=== PATIENT | female | born 1990 | race Hispanic/Latino ===

== ENCOUNTER 2020-06-18 19:20 | Inpatient (IN) | payer MEDICAID, OTHER ==
[2020-06-18 20:19] VITALS: BMI 47.8
[2020-06-18] MEDS ORDERED: HYDROcodone/Acetaminophen 5/325 mg Tablet PO PRN (20:38)
[2020-06-18] MEDS ORDERED: Misoprostol 200 MCG TAB PR PRN (20:38)
[2020-06-18] MEDS ORDERED: Promethazine HCl 25 MG/ML VIAL IM PRN (20:38)
[2020-06-18] MEDS ORDERED: Carboprost 250 MCG/ML AMP IM PRN (20:38)
[2020-06-18] MEDS ORDERED: Ibuprofen 800 MG TAB PO PRN (20:38)
[2020-06-18] MEDS ORDERED: hydrALAZINE 20 MG/ML VIAL SLOW IVP PRN (20:38)
[2020-06-18] MEDS ORDERED: Diphenoxylate HCl/Atropine Tablet PO PRN (20:38)
[2020-06-18] MEDS ORDERED: Lidocaine 1% (PF) 30 ML VIAL SC PRN (20:38)
[2020-06-18] MEDS ORDERED: Ondansetron PF 4 MG/2 ML Vial IVP PRN (20:38)
[2020-06-18] MEDS ORDERED: Methylergonovine 0.2 MG/ML VIAL IM PRN (20:38)
[2020-06-18] MEDS ORDERED: Penicillin G Potassium 5 MILL.UNITS in Sodium Chloride 0.9% 100 ML IVPB SCH (20:45)
[2020-06-18] MEDS ORDERED: NS w/ Oxytocin 30 units 500 ML IV PRN (20:46)
[2020-06-18] MEDS: Lactated Ringer's 1,000 ML IV SCH (20:50)
[2020-06-18] MEDS: Penicillin G 2.5 MILL.units 2.5 MILL.UNITS in Premix Bag 1 BAG IVPB SCH (21:08)
[2020-06-18 21:48] LABS: Hemoglobin 10.6 g/dL (12.0-15.5); Mean Corpuscular HGB CONC 32.1 g/dL (32.0-36.0); Mean Corpuscular Hemoglobin 26.4 pg (27.0-33.0); Mean Corpuscular Volume 82.3 fl (81.6-98.3); Mean Platelet Volume 10.6 fl (7.4-10.4); Platelet Count 307 10x3/uL (150-450); RBC Distribution Width 13.4 % (11.5-14.5); Red Blood Cell (RBC) Count 4.01 10x6/uL (3.90-5.03)
[2020-06-18 22:21] LABS: Hep B Surf Ag Non-Reactive S/CO (NonReactive); Syphilis Antibody Nonreactive (Nonreactive); Syphilis Antibody Index 0.04 S/CO (<1.00 Non-Reactive)
[2020-06-18 22:24] LABS: HBSAg Index 0.17 S/CO (0-0.99)
[2020-06-19] MEDS: Penicillin G 2.5 MILL.units 2.5 MILL.UNITS in Premix Bag 1 BAG IVPB SCH ×6 (00:58→20:27)
[2020-06-19] MEDS: Misoprostol 100 MCG TAB PO SCH ×6 (01:00→22:20)
[2020-06-19] MEDS: Butorphanol Tartrate 1 MG/ML VIAL SLOW IVP PRN ×2 (05:10→15:56)
[2020-06-19] MEDS: Lactated Ringer's 1,000 ML IV SCH ×3 (05:35→20:27)
[2020-06-20] MEDS: Penicillin G 2.5 MILL.units 2.5 MILL.UNITS in Premix Bag 1 BAG IVPB SCH ×4 (01:20→15:27)
[2020-06-20] MEDS: Misoprostol 100 MCG TAB PO SCH ×4 (02:35→15:30)
[2020-06-20] MEDS: Lactated Ringer's 1,000 ML IV SCH ×2 (04:53→09:30)
[2020-06-20] MEDS ORDERED: Fentanyl 4 mcg/Bup 0.1% Cadd 100 ML ONE (09:42)
[2020-06-20] MEDS ORDERED: diphenhydrAMINE 50 MG/ML VIAL IVP PRN (10:31)
[2020-06-20] MEDS ORDERED: Lactated Ringer's 500 ML IV PRN (10:31)
[2020-06-20] MEDS ORDERED: Naloxone HCl 0.4 mg/ml Vial IVP PRN ×2 (10:31)
[2020-06-20] MEDS ORDERED: ePHEDrine 50 MG/ML VIAL SLOW IVP PRN (10:31)
[2020-06-20] MEDS ORDERED: Ondansetron PF 4 MG/2 ML Vial IVP PRN ×2 (10:31→17:34)
[2020-06-20] MEDS ORDERED: Promethazine HCl 25 MG/ML VIAL IM PRN ×2 (10:31→17:34)
[2020-06-20] MEDS ORDERED: Acetaminophen 325 MG TAB PO PRN (10:31)
[2020-06-20] MEDS ORDERED: Fentanyl 4 mcg/Bupivacaine 0.1% Cassette 100 ML EPIDURAL SCH (10:45)
[2020-06-20] MEDS ORDERED: Communication Order-Pharmacy FS SCH (10:45)
[2020-06-20] MEDS ORDERED: Methylergonovine 0.2 MG/ML VIAL ONE (15:24)
[2020-06-20] MEDS ORDERED: Misoprostol 200 MCG TAB ONE (15:24)
[2020-06-20] MEDS ORDERED: Carboprost 250 MCG/ML AMP ONE (15:24)
[2020-06-20 16:41] LABS: RapidComm Collect By CBN
[2020-06-20 16:43] LABS: RapidComm Collect By CBN; pH (Cord, venous) 7.234 (7.250-7.350)
[2020-06-20] MEDS ORDERED: Bisacodyl 10 MG SUPP PR PRN (17:34)
[2020-06-20] MEDS ORDERED: Milk Of Magnesia 30 ML UDCUP PO PRN (17:34)
[2020-06-20] MEDS ORDERED: Preparation H Ointment 28 GM TUBE PR PRN (17:34)
[2020-06-20] MEDS ORDERED: hydrALAZINE 20 MG/ML VIAL SLOW IVP PRN (17:34)
[2020-06-20] MEDS ORDERED: Lanolin Ointment 7 GM TUBE TOP PRN (17:34)
[2020-06-20] MEDS ORDERED: diphenhydrAMINE 25 MG CAP PO PRN (17:34)
[2020-06-20] MEDS ORDERED: Adacel (T-DAP) 0.5 ML SYRINGE IM ONE (17:34)
[2020-06-20] MEDS ORDERED: Benzocaine-Menthol 82.5 ML CAN TOP PRN (17:34)
[2020-06-20] MEDS ORDERED: HYDROcodone/Acetaminophen 5/325 mg Tablet PO PRN ×2 (17:34)
[2020-06-20] MEDS ORDERED: NS w/ Oxytocin 30 units 500 ML IVPB SCH (18:00)
[2020-06-20] MEDS ORDERED: Ferrous Sulfate 325 MG TAB PO SCH (18:15)
[2020-06-20] MEDS: Ibuprofen 800 MG TAB PO SCH (21:42)
[2020-06-20] MEDS: Docusate Calcium (SURFAK) 240 MG CAP PO SCH (21:47)
[2020-06-21] MEDS: Ibuprofen 800 MG TAB PO SCH ×2 (05:28→11:51)
[2020-06-21] MEDS: Penicillin G 2.5 MILL.units 2.5 MILL.UNITS in Premix Bag 1 BAG IVPB SCH (07:57)
[2020-06-21] MEDS: Ferrous Sulfate 325 MG TAB PO SCH ×2 (08:02→16:33)
[2020-06-21] MEDS: Docusate Calcium (SURFAK) 240 MG CAP PO SCH (08:39)
[2020-06-21] MEDS ORDERED: Prenatal Vitamin 1 TAB PO SCH (09:00)
[2020-06-21] MEDS ORDERED: Ibuprofen 800 MG TAB PO SCH (14:00)
[2020-06-21 20:11] VITALS: BP 139/74; TEMP 98.7
== END 2020-06-21 20:45 | disposition home or self-care (01) | DRG 807 ==
LOC: CSHLD 19:59 → CSHPP 06-19 10:00 → CSHLD 06-19 10:34 → CSHPP 06-20 18:09
PROVIDERS: ADMIT Family Medicine; ATTEND Family Medicine
PROC: 10E0XZZ Delivery of Products of Conception, External Approach (ICD-10-PCS; principal; 2020-06-19)
PROC: 0KQM0ZZ Repair Perineum Muscle, Open Approach (ICD-10-PCS; 2020-06-19)
DX: O99.824 Streptococcus B carrier state complicating childbirth (principal); Z37.0 Single live birth; O99.214 Obesity complicating childbirth; Z3A.39 39 weeks gestation of pregnancy; E66.01 Morbid (severe) obesity due to excess calories; O70.1 Second degree perineal laceration during delivery
CPT/HCPCS: 36415; 51702; 82805; 85027; 86780; 86850; 86900; 86901; 87340; 90715; J0595; J2405; J2540; J2590; J3490; J7030